=== PATIENT | female | born 1960 | race Two or more races ===

== ENCOUNTER 2016-10-02 09:45 | Day surgery (SDC) | payer OTHER ==
[~2016-10-02] VITALS: Ht 172.7 cm; Wt 104.9 kg
[2016-10-02 10:22] VITALS: Ht 172.7 cm; Wt 104.9 kg
[2016-10-02] MEDS ORDERED: METF500T4 PO (10:22)
[2016-10-02] MEDS ORDERED: VALS80TA2 PO (10:22)
[2016-10-02] MEDS ORDERED: [UNRECOGNIZED DRUG - OTHER] PO (10:22)
[2016-10-02] MEDS ORDERED: DICY10CA60 PO (10:22)
[2016-10-02] MEDS ORDERED: ANTACID PO (10:22)
[2016-10-02] MEDS ORDERED: PROPOFOL 40 ML ONE (10:23)
[2016-10-02] MEDS ORDERED: LIDOCAINE 2% (SDV) 5 ML INJ ONE (10:23)
--- NOTE | 2016-10-02 11:28 | GILP ---
DATE OF PROCEDURE: 10/02/2016 PROCEDURE PERFORMED: Colonoscopy with biopsy. INDICATION: A 56-year-old female undergoing this procedure for screening colonoscopy and also for a bdominal pain. The risk of the procedure, related and unrelated complications, anesthetic risks, al ternatives discussed. Informed consent was obtained. DESCRIPTION OF PROCEDURE: The patient was brought to the GI lab, sedated by the anesthesiologist. After obtaining sedation, scope was passed with much ease into esophagus which was grossly within no rmal limits. Z line was at 38 cm. The patient had erosive esophagitis, 2 linear erosions. There w as a superficial ulcer identified. Each one was about 1 1.5 cm in length. She also had a gastritis , moderate to severe degree in the antrum. Duodenum, first and second part appeared normal. Ampull a was normal. Retroversion was normal. Scope was straightened out and multiple biopsies obtained t o rule out Helicobacter pylori infection. IMPRESSION: 1. Erosive esophagitis, LA class C. 2. Z line at 36 cm. 3. Severe gastritis in antrum. 4. Normal duodenum. PLAN: Review histopathology. COLONOSCOPY REPORT: The patient was turned around, scope was passed with much ease into rectum, adv anced through sigmoid, descending, transverse colon all the way into cecum. The appendix was covere d with stool. The rest of the colon was normal except for 1 diverticulum identified in the transver se colon. Retroversion done in the cecum that was normal. On antegrade examination, external hemor rhoids identified. IMPRESSION: 1. External hemorrhoids, otherwise negative all the way into cecum. 2. Preparation was inadequate. Had solid stool in the cecum and also on the right side, precluding the visibility by 15%. PLAN: To stay on a high fiber diet, to take Metamucil or Citrucel on a regular basis. If the pain is significant or persistent, then will get a CAT scan of the abdomen and pelvis done. Dictated By: RAYA FLORES/ESTHER Conf#: [id number] DID#: [id number] CC: RAYA ANGEL MD;*EndCC*
[2016-10-02] MEDS ORDERED: ACETAMINOPHEN 500 MG TAB PO SCH (12:00)
[2016-10-02] MEDS ORDERED: LACTATED RINGER'S 500 ML IV SCH (12:00)
[2016-10-02 12:13] VITALS: BP 135/68; PULSE 61; RESP 16
== END 2016-10-02 13:22 | disposition home or self-care (01) ==
LOC: GIL 09:45
PROVIDERS: ATTEND Internal Medicine Gastroenterology
DX: Z12.11 Encounter for screening for malignant neoplasm of colon (principal); K29.50 Unspecified chronic gastritis without bleeding; K20.8 Other esophagitis; K64.4 Residual hemorrhoidal skin tags; E11.9 Type 2 diabetes mellitus without complications
CPT/HCPCS: 43239; 45378; 82962; 88305; 88312; Z7610